=== PATIENT | male | born 2000 | race Native Hawaiian/Other Pacific Islander ===

== ENCOUNTER 2022-10-10 15:02 | Emergency (ER) | payer SELFPAY ==
[~2022-10-10] VITALS: Ht 167.6 cm; Wt 104.5 kg
[2022-10-10 15:06] VITALS: TEMP 97.9
[2022-10-10 15:41] VITALS: BP 119/76; PULSE 77
== END 2022-10-10 15:46 | disposition home or self-care (01) ==
LOC: COL.ER 15:02
DX: S66.912A Strain of unspecified muscle, fascia and tendon at wrist and hand level, left hand, initial encounter (principal); Z28.310 Unvaccinated for COVID-19; X58.XXXA Exposure to other specified factors, initial encounter; Y92.512 Supermarket, store or market as the place of occurrence of the external cause; Y99.0 Civilian activity done for income or pay